=== PATIENT | female | born 1945 | race Caucasian/White ===

== ENCOUNTER 2016-11-04 08:25 | Day surgery (SDC) | payer MEDICARE, MEDICAID ==
[~2016-11-04 08:25] MED LIST: ANASTROZOLE1 MG PO; CALCIUM600 M1 PO; D32000 UNIT PO; DONEPEZIL5 MG PO; GLIPIZIDE ER2.5 MG PO; GNP VITAMIN8000 UNIT PO; HYDROCHLORO25 MG/TAB PO; IPRATROPIU0.5 MG/3 M IN; IRON45 MG PO; LEVOTHYROXIN125 MCG PO; LOSARTAN POTASS25 MG PO; LOVASTATIN20 M1 PO; METFORMIN500 M2 PO; MONTELUKAST SOD10 MG PO; OMEGA PO; ONE DAILY FOR WOME1 PO; PRILOSEC40 MG PO; SERTRALINE HCL50 MG PO; SPIRONOLACTONE25 MG PO; STIOLTO RESPIMA1 AER IN; SUPER B COMPLEX PO; VIT PO; VITAMIN B-12500 MCG PO; VITAMIN B6100 MG PO; VITAMIN D1000 UNIT PO; [UNRECOGNIZED DRUG - OTHER] PO
[2016-11-04 11:29] VITALS: BP 146/66
== END 2016-11-04 11:38 | disposition home or self-care (01) ==
LOC: ENDO 08:25 → ORM 10:00 → ENDO 11:30 → ORM 11:30 → ENDO 11:38
PROVIDERS: ATTEND Internal Medicine Gastroenterology
PROC: 0W3P8ZZ Control Bleeding in Gastrointestinal Tract, Via Natural or Artificial Opening Endoscopic (ICD-10-PCS; principal; 2016-11-04)
DX: Q27.33 Arteriovenous malformation of digestive system vessel (principal); D50.9 Iron deficiency anemia, unspecified; K21.9 Gastro-esophageal reflux disease without esophagitis; K29.70 Gastritis, unspecified, without bleeding; K57.30 Diverticulosis of large intestine without perforation or abscess without bleeding; K44.9 Diaphragmatic hernia without obstruction or gangrene; R10.31 Right lower quadrant pain; R10.32 Left lower quadrant pain; K64.4 Residual hemorrhoidal skin tags; E78.00 Pure hypercholesterolemia, unspecified; E11.9 Type 2 diabetes mellitus without complications; I10 Essential (primary) hypertension